=== PATIENT | female | born 1955 | race Caucasian/White ===

== ENCOUNTER 2021-12-10 22:24 | Inpatient (IN) | payer OTHER, BC ==
[~2021-12-10] VITALS: Ht 157.5 cm; Wt 69.5 kg
[2021-12-10 22:48] VITALS: BP_SYST 102
--- NOTE | 2021-12-10 22:55 | NUR ---
RECEIVED PT BIB BLS TRANSPORT C/O LOWER BACK PAIN RADIATES TO UPPER. PT DENIES TRAUMA, DENIES FALL. SHE STATED THAT SHE LEFT AMA ON REHAB WHERE SHE WAS EARLIER. PER PT SHE WAS AT [facility] AND DID MRI ON HER. PMH:CHRONIC BACK PAIN PT AAOX4, NO SOB NOTED AND NAD.
--- NOTE | 2021-12-11 01:10 | NUR ---
Patient to ER bed 03 to gown for evaluation. Side rails up.
--- NOTE | 2021-12-11 02:42 | NUR ---
Dr. Sorensen at bedside with patient for evaluation.
[2021-12-11] MEDS ORDERED: traMADol HCL HCL 50 MG TABLET (ULTRAM) PO ONE (03:30)
[2021-12-11 03:43] LABS: BASOPHILS # (AUTO) 0.1 K/uL (0.0-0.2); BASOPHILS % (AUTO) 0.6 % (0.0-2.0); EOSINOPHILS # (AUTO) 0.6 K/uL (0.0-0.4); EOSINOPHILS % (AUTO) 4.6 % (0.0-4.0); HEMATOCRIT 38.6 % (36-48); HEMOGLOBIN 13.3 g/dL (12.0-16.0); LYMPHOCYTES % (AUTO) 22.9 % (20.5-51.5); MEAN CORPUSCULAR HEMOGLOBIN 29 pg (27-31); MEAN CORPUSCULAR HGB CONC 35 % (32-36); MEAN CORPUSCULAR VOLUME 83 fL (79.0-98.0); MONOCYTES % (AUTO) 7.5 % (1.7-9.3); NEUTROPHILS # (AUTO) 8.5 K/uL (1.8-7.7); NEUTROPHILS % (AUTO) 64.4 % (40.0-70.0); PLATELET COUNT (AUTO) 300 K/uL (130-430); RED BLOOD CELL COUNT(AUTO) 4.64 MIL/uL (4.2-6.2); RED CELL DISTRIBUTION WIDTH 13.3 % (9.0-15.0); WHITE BLOOD COUNT (AUTO) 13.2 K/uL (4.8-10.8)
[2021-12-11 04:09] LABS: CALCIUM 8.8 mg/dL (8.4-11.0); CREATININE 1.13 mg/dL (0.55-1.30); POTASSIUM 3.9 mmol/L (3.5-5.1)
[2021-12-11 04:14] LABS: TOTAL BILIRUBIN 0.5 mg/dL (0.0-1.0)
[2021-12-11] MEDS ORDERED: CLON0.5T4 PO (04:19)
[2021-12-11] MEDS ORDERED: PRO10 PO (04:19)
--- NOTE | 2021-12-11 04:20 | NUR ---
MED REC COMPLETED. INFORMATION PROVIDED BY PT.
--- NOTE | 2021-12-11 04:42 | NUR ---
Pt unable to provide urine sample. MADE AWARE.
--- NOTE | 2021-12-11 04:43 | NUR ---
Admit bed requested Patient will be admitted to care of Dr. MCNEAL. Admitted to MED SURG unit. Diagnosis BACK PAIN Inpatient (Yes or No) YES Observation (Yes or No) NO Orientation concerns or request close to nursing station (Yes or No) NO Covid Status PENDING On vent or bipap NO Isolation requirements NO Needs a sitter NO From Home (Yes or if No enter name of facility) YES Requires Dialysis (Yes or No) NO Med Rec Completed (Yes of No) YES
[2021-12-11] MEDS ORDERED: MORPHINE 2 MG/ML INJ. SYRINGE IVP PRN ×2 (04:45→07:30)
--- NOTE | 2021-12-11 05:33 | NUR ---
Patient will be admitted to care of Dr. Murdock. Admitted to MED SURG unit. Will go to room 103B. Belongings list completed. Complete and up to date summary report printed. SBAR report given to Melyssa JON at bedside with opportunity for questions.
--- NOTE | 2021-12-11 05:33 | NUR ---
Received report from DANAY Medina and assumed patient care. Will wait for patient to arrive on unit in room 103B.
--- NOTE | 2021-12-11 06:10 | NUR ---
Patient arrived on the unit, educated the patient about the use of call light, and the unit policies. Patient understood all the education, no additional questions noted at the moment. Will reinforce if needed throughout the shift.
[2021-12-11 06:15] VITALS: BP_SYST 128
[2021-12-11 07:03] VITALS: BP_SYST 137
[2021-12-11] MEDS ORDERED: DOCUSATE SODIUM 100 MG CAPSULE PO PRN (07:30)
[2021-12-11] MEDS ORDERED: ACETAMINOPHEN 325 MG TABLET PO PRN (07:30)
[2021-12-11] MEDS ORDERED: LORazepam 2 MG/ML VIAL IVP PRN (07:30)
[2021-12-11] MEDS ORDERED: MAGNESIUM SULFATE 50 ML IV PRN (07:30)
[2021-12-11] MEDS ORDERED: POTASSIUM CHLORIDE 20 MEQ TAB.PRT.SR PO PRN (07:30)
[2021-12-11] MEDS ORDERED: NALOXONE HCL 0.4 MG/ML AMP (NARCAN) IVP PRN ×2 (07:30)
[2021-12-11] MEDS ORDERED: MUPIROCIN 2% TOPICAL OINTMENT 22 GM NS PRN (07:30)
[2021-12-11] MEDS ORDERED: PRO20 PO (07:33)
[2021-12-11 07:49] LABS: BILIRUBIN,URINE NEGATIVE (NEGATIVE); BLOOD, URINE 3+ (NEGATIVE); CLARITY/URINE CLEAR (CLEAR); COLOR,URINE YELLOW (YELLOW); GLUCOSE,URINE NEGATIVE (NEGATIVE); KETONES,URINE NEGATIVE (NEGATIVE); LEUKOCYTE ESTERASE ,URINE 3+ (NEGATIVE); NITRITE, URINE NEGATIVE (NEGATIVE); PROTEIN URINE NEGATIVE (NEGATIVE); UROBILINOGEN,URINE 0.2 (0.2-1.0)
[2021-12-11 08:28] LABS: BACTERIA,URINE FEW /HPF (None Seen)
[2021-12-11 08:29] LABS: MUCUS,URINE 1+ /LPF (None Seen)
[2021-12-11] MEDS: MORPHINE 2 MG/ML INJ. SYRINGE IVP PRN ×2 (10:27→21:21)
[2021-12-11] MEDS: ONDANSETRON HCL 4 MG/2 ML VIAL IVP PRN (10:27)
[2021-12-11] MEDS: FLUoxetine HCL 20 MG CAPSULE (PROzac) PO SCH (10:27)
[2021-12-11 11:34] VITALS: BP_SYST 141
[2021-12-11] MEDS: cefTRIAXone 1 GM in D5W 50 ML IV SCH (13:00)
[2021-12-11 16:42] VITALS: BP_SYST 132
--- NOTE | 2021-12-11 19:15 | NUR ---
Received report from AM shift RN, and assumed patient care.
[2021-12-11 20:00] VITALS: BP_SYST 133
[2021-12-11 21:00] VITALS: BP_SYST 130
--- NOTE | 2021-12-11 23:45 | NUR ---
Patient is seen in bed with the call light within reach, bed in lowest position. No complications noted at the moment, will reinforce if needed throughout the shift.
[2021-12-12] VITALS: BP_SYST 144
[2021-12-12 02:51] VITALS: BP_SYST 141
[2021-12-12] MEDS: MORPHINE 2 MG/ML INJ. SYRINGE IVP PRN (02:51)
--- NOTE | 2021-12-12 02:51 | NUR ---
Patient complained of pain, pain medication given (please see emar for further details). No additional complications noted at the moment. Will reinforce if needed throughout the shift.
--- NOTE | 2021-12-12 04:44 | NUR ---
Patient attempted to use the bedside commode, unsuccessful to perform due to pain. Patient OK to wait again and retry with bedpan.
--- NOTE | 2021-12-12 05:00 | NUR ---
Attempted to call Dr. Murdock for patient's complaint of not being able to urinate due to pain, no answer, and left a voicemail. Will retry again, no additional orders noted at the moment.
[2021-12-12 06:01] LABS: BASOPHILS # (AUTO) 0.1 K/uL (0.0-0.2); BASOPHILS % (AUTO) 0.7 % (0.0-2.0); EOSINOPHILS # (AUTO) 0.5 K/uL (0.0-0.4); EOSINOPHILS % (AUTO) 5.5 % (0.0-4.0); HEMATOCRIT 37.8 % (36-48); HEMOGLOBIN 13.1 g/dL (12.0-16.0); LYMPHOCYTES # (AUTO) 2.2 K/uL (1.0-5.5); LYMPHOCYTES % (AUTO) 21.8 % (20.5-51.5); MEAN CORPUSCULAR HEMOGLOBIN 29 pg (27-31); MEAN CORPUSCULAR HGB CONC 35 % (32-36); MEAN CORPUSCULAR VOLUME 84 fL (79.0-98.0); MONOCYTES # (AUTO) 0.8 K/uL (0.0-1.0); MONOCYTES % (AUTO) 7.5 % (1.7-9.3); NEUTROPHILS # (AUTO) 6.5 K/uL (1.8-7.7); NEUTROPHILS % (AUTO) 64.5 % (40.0-70.0); PLATELET COUNT (AUTO) 313 K/uL (130-430); RED BLOOD CELL COUNT(AUTO) 4.53 MIL/uL (4.2-6.2); RED CELL DISTRIBUTION WIDTH 13.2 % (9.0-15.0); WHITE BLOOD COUNT (AUTO) 10.1 K/uL (4.8-10.8)
[2021-12-12 06:12] LABS: CREATININE 1.03 mg/dL (0.55-1.30); POTASSIUM 3.7 mmol/L (3.5-5.1)
[2021-12-12] MEDS: FLUoxetine HCL 20 MG CAPSULE (PROzac) PO SCH (08:30)
[2021-12-12] MEDS: ONDANSETRON HCL 4 MG/2 ML VIAL IVP PRN (08:31)
[2021-12-12 11:25] VITALS: BP_SYST 137
[2021-12-12] MEDS: cefTRIAXone 1 GM in D5W 50 ML IV SCH (14:29)
[2021-12-12 15:26] VITALS: BP_SYST 155
[2021-12-12] MEDS: CYCLOBENZAPRINE HCL 10 MG TABLET (FLEXERIL) PO SCH ×2 (16:04→20:17)
[2021-12-12] MEDS: GABAPENTIN 300 MG CAPSULE PO SCH ×2 (16:05→20:17)
--- NOTE | 2021-12-12 16:25 | NUR ---
CHIANG CATHETER INSERTED SUCCESSFULLY. DRAINING AND HANGING FREELY. PT DENIES PAIN AT THIS TIME. WILL CONTINUE TO MONITOR. STABLE AT THIS TIME.
--- NOTE | 2021-12-12 19:05 | NUR ---
Received report from AM shift RN, and assumed patient care.
[2021-12-12 20:00] VITALS: BP_SYST 138
--- NOTE | 2021-12-12 21:00 | NUR ---
Educated the patient about the plan of care, and the use of call light. Patient understood the teaching and will reinforce education if needed throughout the shift.
--- NOTE | 2021-12-13 | NUR ---
Patient is found in bed, asleep. No complications noted at the moment, call light is within reach, and bed is in lowest position. Will reinforce if needed throughout the shift.
[2021-12-13 00:43] VITALS: BP_SYST 158
--- NOTE | 2021-12-13 04:00 | NUR ---
Patient was found in bed asleep, no complications noted at the moment. Call light is within reach, bed is in lowest position. Will reinforce if needed throughout the shift.
[2021-12-13 05:13] VITALS: BP_SYST 142
[2021-12-13] MEDS: MORPHINE 2 MG/ML INJ. SYRINGE IVP PRN ×3 (05:13→20:06)
--- NOTE | 2021-12-13 05:13 | NUR ---
Patient complained of pain, provided non-pharmacological interventions however it was not successful. Patient continued to request for pain medication, please see emar for further details.
[2021-12-13 07:38] LABS: CALCIUM 8.5 mg/dL (8.4-11.0); CREATININE 0.87 mg/dL (0.55-1.30)
[2021-12-13 08:00] VITALS: BP_SYST 152
--- NOTE | 2021-12-13 08:00 | NUR ---
Miss Lira has been assessed as indicated. She is being treated for chronic back pain with PRN IV meds. as well as PO scheduled meds. She is resting quietly at this time. She states that she was in a rehab facility in [place] until 12/10/21. She states that she left AMA and went home with the help of a neighbor. She came to [place] on night. She states that she cannot walk. according to her, she was informed that the results of recent testing show that she cannot be rehabbed but needs to have sugary by a "good" neuro-surgeon. She states that she has an office appointment with one on 12/28/21. She anticipates that she will be DC back to a rehab facility until she can get to that appointment. She states that she can no longer care for herself at home. She states that she cannot walk at all. Along with this back pain she is having Dysuria and has a Musa in place a this time. A plan of care will be developed by case management and admitting physicians
[2021-12-13 08:23] LABS: BASOPHILS # (AUTO) 0.1 K/uL (0.0-0.2); BASOPHILS % (AUTO) 0.7 % (0.0-2.0); EOSINOPHILS # (AUTO) 0.5 K/uL (0.0-0.4); EOSINOPHILS % (AUTO) 6.4 % (0.0-4.0); HEMATOCRIT 39.9 % (36-48); HEMOGLOBIN 13.6 g/dL (12.0-16.0); LYMPHOCYTES # (AUTO) 2.9 K/uL (1.0-5.5); LYMPHOCYTES % (AUTO) 34.7 % (20.5-51.5); MEAN CORPUSCULAR HEMOGLOBIN 29 pg (27-31); MEAN CORPUSCULAR HGB CONC 34 % (32-36); MEAN CORPUSCULAR VOLUME 84 fL (79.0-98.0); MONOCYTES # (AUTO) 0.8 K/uL (0.0-1.0); MONOCYTES % (AUTO) 9.7 % (1.7-9.3); NEUTROPHILS # (AUTO) 4.1 K/uL (1.8-7.7); NEUTROPHILS % (AUTO) 48.5 % (40.0-70.0); PLATELET COUNT (AUTO) 317 K/uL (130-430); RED BLOOD CELL COUNT(AUTO) 4.74 MIL/uL (4.2-6.2); RED CELL DISTRIBUTION WIDTH 13.1 % (9.0-15.0); WHITE BLOOD COUNT (AUTO) 8.4 K/uL (4.8-10.8)
[2021-12-13] MEDS: FLUoxetine HCL 20 MG CAPSULE (PROzac) PO SCH (10:19)
[2021-12-13] MEDS: GABAPENTIN 300 MG CAPSULE PO SCH ×3 (10:19→20:20)
[2021-12-13] MEDS: CYCLOBENZAPRINE HCL 10 MG TABLET (FLEXERIL) PO SCH ×3 (10:20→20:20)
[2021-12-13 11:26] VITALS: BP_SYST 117
[2021-12-13] MEDS: cefTRIAXone 1 GM in D5W 50 ML IV SCH (14:44)
--- NOTE | 2021-12-13 14:50 | NUR ---
MORPHJINE IV 2MG GIVEN. RFA22 FOR BACK PAIN. 10/31
--- NOTE | 2021-12-13 15:20 | NUR ---
PAIN REASSESSMENT 2/10 RESTING QUIETLY
[2021-12-13 15:34] VITALS: BP_SYST 134
--- NOTE | 2021-12-13 19:15 | NUR ---
Received report from AM shift RN, and assumed patient care.
--- NOTE | 2021-12-13 19:15 | NUR ---
Handoff has been given to Gifty
[2021-12-13 20:00] VITALS: BP_SYST 140
--- NOTE | 2021-12-13 20:03 | NUR ---
Educated the patient about the plan of care, patient had no further questions noted at the moment and will reinforce education if needed throughout the shift.
[2021-12-14 00:06] VITALS: BP_SYST 133
--- NOTE | 2021-12-14 00:14 | NUR ---
Patient is in bed, asleep. No questions or complications noted at the moment, and will reinforce if needed throughout the shift. Call light within reach, and bed is in lowest position. Will reinforce if needed throughout the shift.
[2021-12-14 06:40] VITALS: BP_SYST 146
[2021-12-14] MEDS: MORPHINE 2 MG/ML INJ. SYRINGE IVP PRN ×2 (06:41→13:14)
[2021-12-14 07:13] LABS: BASOPHILS # (AUTO) 0.1 K/uL (0.0-0.2); BASOPHILS % (AUTO) 1.1 % (0.0-2.0); EOSINOPHILS # (AUTO) 0.5 K/uL (0.0-0.4); HEMATOCRIT 38.7 % (36-48); HEMOGLOBIN 13.3 g/dL (12.0-16.0); LYMPHOCYTES % (AUTO) 35.2 % (20.5-51.5); MEAN CORPUSCULAR HEMOGLOBIN 29 pg (27-31); MEAN CORPUSCULAR HGB CONC 35 % (32-36); MEAN CORPUSCULAR VOLUME 84 fL (79.0-98.0); MONOCYTES # (AUTO) 0.6 K/uL (0.0-1.0); MONOCYTES % (AUTO) 6.9 % (1.7-9.3); NEUTROPHILS # (AUTO) 4.3 K/uL (1.8-7.7); NEUTROPHILS % (AUTO) 50.8 % (40.0-70.0); PLATELET COUNT (AUTO) 308 K/uL (130-430); RED BLOOD CELL COUNT(AUTO) 4.61 MIL/uL (4.2-6.2); RED CELL DISTRIBUTION WIDTH 13.1 % (9.0-15.0); WHITE BLOOD COUNT (AUTO) 8.5 K/uL (4.8-10.8)
[2021-12-14 07:30] LABS: CALCIUM 8.6 mg/dL (8.4-11.0); CREATININE 0.79 mg/dL (0.55-1.30); POTASSIUM 4.3 mmol/L (3.5-5.1)
--- NOTE | 2021-12-14 08:00 | NUR ---
Miss Liar has been assessed as indicted. She has been treated for pain by previous shift and is resting quietly at this time. She anticipates being DC to a SNF soon and she is compliant with this plan. The Musa remains in place with good urine output.
[2021-12-14] MEDS ORDERED: traMADol HCL HCL 50 MG TABLET (ULTRAM) PO SCH (09:00)
[2021-12-14] MEDS: FLUoxetine HCL 20 MG CAPSULE (PROzac) PO SCH (09:12)
[2021-12-14] MEDS: GABAPENTIN 300 MG CAPSULE PO SCH (09:12)
[2021-12-14] MEDS: CYCLOBENZAPRINE HCL 10 MG TABLET (FLEXERIL) PO SCH (09:12)
[2021-12-14 11:23] VITALS: BP_SYST 141
[2021-12-14 12:07] VITALS: BP_SYST 138
[2021-12-14] MEDS: cefTRIAXone 1 GM in D5W 50 ML IV SCH (13:15)
--- NOTE | 2021-12-14 15:05 | NUR ---
Miss Lira is being DC to [facility]. Report has been called to Anne. [facility]. She will be going to bed 8a. IV access remains in place. Musa is to remain in place. She is being transported by [facility] unit #[id number] with Wyatt in charge. At the time of DC Miss Lira was resting quietly with no s/s of distress or discomfort and was compliant with the plan to DC. She stated that her daughter was aware of her transfer as well as the location. She took all her belongings with her. She had some shorts and a t-shirt from home that she had worn to the hospital. She stated that they were soiled and instructed this grant writer to dispose of the items.
== END 2021-12-14 15:05 | DRG 552 ==
LOC: SED 22:24 → SMU 12-11 04:32
PROVIDERS: ADMIT Family Medicine; ATTEND Family Medicine
DX: M54.30 Sciatica, unspecified side (principal); N39.0 Urinary tract infection, site not specified; E44.0 Moderate protein-calorie malnutrition; M51.36 Other intervertebral disc degeneration, lumbar region; Z20.822 Contact with and (suspected) exposure to COVID-19; R53.81 Other malaise; G62.9 Polyneuropathy, unspecified; Z88.8 Allergy status to other drugs, medicaments and biological substances; Z79.899 Other long term (current) drug therapy; Z68.28 Body mass index [BMI] 28.0-28.9, adult
CPT/HCPCS: 36415; 72100-TC; 80048; 80053; 81000; 83735; 85025; 87081; 87086; 97110-GP; 97116-GP; 97530-GP; 99285; J0696; J2060; J2270; J2405; J7040; J7060

== ENCOUNTER 2022-02-23 10:20 | Inpatient (IN) | payer OTHER, BC ==
[~2022-02-23] VITALS: Ht 157.5 cm; Wt 60.8 kg
[~2022-02-23 10:20] MED LIST: CLON0.5T4 PO; PRO20 PO
[2022-02-23] MEDS ORDERED: fentaNYL CITRATE/PF 100 MCG/2 ML AMP ONE (11:04)
[2022-02-23] MEDS ORDERED: BACITRACIN 1 GM OINT TP ONE (11:14)
[2022-02-23 14:50] LABS: BASOPHILS # (AUTO) 0.1 K/uL (0.0-0.2); BASOPHILS % (AUTO) 0.8 % (0.0-2.0); EOSINOPHILS # (AUTO) 0.1 K/uL (0.0-0.4); EOSINOPHILS % (AUTO) 1.5 % (0.0-4.0); HEMATOCRIT 42.1 % (36-48); HEMOGLOBIN 13.7 g/dL (12.0-16.0); LYMPHOCYTES # (AUTO) 2.6 K/uL (1.0-5.5); LYMPHOCYTES % (AUTO) 29.9 % (20.5-51.5); MEAN CORPUSCULAR HEMOGLOBIN 27 pg (27-31); MEAN CORPUSCULAR HGB CONC 33 % (32-36); MEAN CORPUSCULAR VOLUME 83 fL (79.0-98.0); MONOCYTES # (AUTO) 0.6 K/uL (0.0-1.0); MONOCYTES % (AUTO) 7.3 % (1.7-9.3); NEUTROPHILS # (AUTO) 5.2 K/uL (1.8-7.7); NEUTROPHILS % (AUTO) 60.5 % (40.0-70.0); PLATELET COUNT (AUTO) 403 K/uL (130-430); RED BLOOD CELL COUNT(AUTO) 5.05 MIL/uL (4.2-6.2); RED CELL DISTRIBUTION WIDTH 15.1 % (9.0-15.0); WHITE BLOOD COUNT (AUTO) 8.6 K/uL (4.8-10.8)
[2022-02-23 14:56] LABS: CALCIUM 9.7 mg/dL (8.4-11.0)
[2022-02-23 14:57] LABS: CREATININE 0.65 mg/dL (0.55-1.30)
[2022-02-23 14:58] LABS: ALBUMIN 3.3 g/dL (3.4-4.8); TOTAL BILIRUBIN 0.6 mg/dL (0.0-1.0)
[2022-02-23] MEDS ORDERED: HYDROmorphone 2 MG/ML VIAL IVP PRN (15:00)
[2022-02-23] MEDS ORDERED: HYDROmorphone 1 MG/ML INJ. CARTRIDGE IVP PRN ×2 (15:12→17:00)
[2022-02-23 15:36] LABS: BILIRUBIN,URINE NEGATIVE (NEGATIVE); BLOOD, URINE 1+ (NEGATIVE); CLARITY/URINE CLEAR (CLEAR); COLOR,URINE YELLOW (YELLOW); GLUCOSE,URINE NEGATIVE (NEGATIVE); KETONES,URINE NEGATIVE (NEGATIVE); LEUKOCYTE ESTERASE ,URINE 1+ (NEGATIVE); NITRITE, URINE NEGATIVE (NEGATIVE); PROTEIN URINE TRACE (NEGATIVE); UROBILINOGEN,URINE 0.2 (0.2-1.0)
[2022-02-23 15:52] LABS: BACTERIA,URINE FEW /HPF (None Seen); MUCUS,URINE None Seen /LPF (None Seen); RBC,URINE 0-3 /HPF (0-3)
[2022-02-23] MEDS ORDERED: ACETAMINOPHEN 325 MG TABLET PO PRN (17:00)
[2022-02-23] MEDS ORDERED: NALOXONE HCL 0.4 MG/ML AMP (NARCAN) IVP PRN ×2 (17:00)
[2022-02-23] MEDS ORDERED: DIPHENHYDRAMINE INJ 50 MG/ML VIAL IVP PRN (17:00)
[2022-02-23] MEDS ORDERED: ONDANSETRON HCL 4 MG/2 ML VIAL IVP PRN (17:00)
[2022-02-23] MEDS ORDERED: LR 500 ML IV ONE (17:45)
[2022-02-23] MEDS: cefTRIAXone 1 GM IVPB PREMIX 50 ML IV SCH (19:02)
[2022-02-23] MEDS: HYDROmorphone 2 MG TAB PO PRN (19:03)
[2022-02-23] MEDS: HYDROmorphone 1 MG/ML INJ. CARTRIDGE IVP PRN (23:40)
[2022-02-24 00:12] VITALS: BP_SYST 148
[2022-02-24 04:04] VITALS: BP_SYST 138
[2022-02-24] MEDS: HYDROmorphone 2 MG TAB PO PRN ×3 (06:52→18:34)
[2022-02-24 07:18] LABS: BASOPHILS % (AUTO) 0.6 % (0.0-2.0); EOSINOPHILS # (AUTO) 0.4 K/uL (0.0-0.4); EOSINOPHILS % (AUTO) 4.6 % (0.0-4.0); HEMOGLOBIN 12.4 g/dL (12.0-16.0); LYMPHOCYTES # (AUTO) 2.6 K/uL (1.0-5.5); LYMPHOCYTES % (AUTO) 34.1 % (20.5-51.5); MEAN CORPUSCULAR HEMOGLOBIN 28 pg (27-31); MEAN CORPUSCULAR HGB CONC 34 % (32-36); MEAN CORPUSCULAR VOLUME 83 fL (79.0-98.0); MONOCYTES # (AUTO) 0.7 K/uL (0.0-1.0); MONOCYTES % (AUTO) 9.5 % (1.7-9.3); NEUTROPHILS # (AUTO) 3.9 K/uL (1.8-7.7); NEUTROPHILS % (AUTO) 51.2 % (40.0-70.0); PLATELET COUNT (AUTO) 356 K/uL (130-430); RED BLOOD CELL COUNT(AUTO) 4.48 MIL/uL (4.2-6.2); RED CELL DISTRIBUTION WIDTH 15.2 % (9.0-15.0); WHITE BLOOD COUNT (AUTO) 7.7 K/uL (4.8-10.8)
[2022-02-24 07:19] LABS: CALCIUM 8.8 mg/dL (8.4-11.0); CREATININE 0.6 mg/dL (0.55-1.30)
[2022-02-24 08:00] VITALS: BP_SYST 141
[2022-02-24] MEDS: clonazePAM 0.5 MG TABLET PO PRN ×2 (08:37→20:43)
[2022-02-24] MEDS: FLUoxetine HCL 20 MG CAPSULE (PROzac) PO SCH (08:37)
[2022-02-24 11:30] VITALS: BP_SYST 135
[2022-02-24 15:21] VITALS: BP_SYST 133
[2022-02-24] MEDS: cefTRIAXone 1 GM IVPB PREMIX 50 ML IV SCH (17:54)
[2022-02-24 20:00] VITALS: BP_SYST 141
[2022-02-25 00:23] VITALS: BP_SYST 127
[2022-02-25] MEDS: HYDROmorphone 2 MG TAB PO PRN ×3 (00:31→15:54)
[2022-02-25 08:00] VITALS: BP_SYST 130
[2022-02-25] MEDS: FLUoxetine HCL 20 MG CAPSULE (PROzac) PO SCH (08:14)
[2022-02-25] MEDS: clonazePAM 0.5 MG TABLET PO PRN (09:34)
[2022-02-25] MEDS: HYDROmorphone 1 MG/ML INJ. CARTRIDGE IVP PRN ×2 (09:34→13:56)
[2022-02-25 11:24] VITALS: BP_SYST 134
[2022-02-25 15:20] VITALS: BP_SYST 160
[2022-02-25 16:55] VITALS: BP_SYST 147
== END 2022-02-25 17:25 | disposition home or self-care (01) | DRG 552 ==
LOC: SED 10:20 → SMU 13:52
PROVIDERS: ADMIT Internal Medicine; ATTEND Internal Medicine
DX: M54.59 Other low back pain (principal); N30.00 Acute cystitis without hematuria; E44.1 Mild protein-calorie malnutrition; E86.0 Dehydration; K21.9 Gastro-esophageal reflux disease without esophagitis; F32.A Depression, unspecified; F41.9 Anxiety disorder, unspecified; Z20.822 Contact with and (suspected) exposure to COVID-19; Z88.8 Allergy status to other drugs, medicaments and biological substances; Z79.899 Other long term (current) drug therapy; Z68.24 Body mass index [BMI] 24.0-24.9, adult
CPT/HCPCS: 36415; 72131; 76376; 80048; 80053; 81000; 85025; 87081; 87086; 99285; J0696; J1170; J3010; J7040

== ENCOUNTER 2023-03-10 08:45 | Emergency (ER) | payer BC, OTHER ==
[~2023-03-10] VITALS: Ht 157.5 cm; Wt 68.0 kg
[2023-03-10 08:47] VITALS: BP_SYST 187; PULSE 119; RESP 17; TEMP 98.8; O2SAT 98
[2023-03-10 09:15] LABS: BASOPHILS # (AUTO) 0.1 K/uL (0.0-0.2); EOSINOPHILS # (AUTO) 0.2 K/uL (0.0-0.4); EOSINOPHILS % (AUTO) 1.8 % (0.0-4.0); HEMATOCRIT 42.2 % (36-48); HEMOGLOBIN 14.1 g/dL (12.0-16.0); LYMPHOCYTES # (AUTO) 1.9 K/uL (1.0-5.5); LYMPHOCYTES % (AUTO) 16.8 % (20.5-51.5); MEAN CORPUSCULAR HEMOGLOBIN 28 pg (27-31); MEAN CORPUSCULAR HGB CONC 33 % (32-36); MEAN CORPUSCULAR VOLUME 83 fL (79.0-98.0); MONOCYTES % (AUTO) 8.8 % (1.7-9.3); NEUTROPHILS % (AUTO) 71.6 % (40.0-70.0); PLATELET COUNT (AUTO) 362 K/uL (130-430); RED BLOOD CELL COUNT(AUTO) 5.12 MIL/uL (4.2-6.2); RED CELL DISTRIBUTION WIDTH 13.4 % (9.0-15.0); WHITE BLOOD COUNT (AUTO) 11.2 K/uL (4.8-10.8)
[2023-03-10 09:23] LABS: ANION GAP 10 (5-15); CALCIUM 9.6 mg/dL (8.4-11.0); CARBON DIOXIDE 28 mmol/L (23-29); CHLORIDE 104 mmol/L (98-107); CREATININE 0.78 mg/dL (0.55-1.30); GFR AFRICAN AMERICAN 95 mL/min (>90); GLUCOSE 138 mg/dL (74-106); POTASSIUM 4.5 mmol/L (3.5-5.1); SODIUM SERUM 142 mmol/L (136-145); UREA NITROGEN, BLOOD 24 mg/dL (8-21)
[2023-03-10 09:24] LABS: GFR NON AFRICAN-AMERICAN 78 mL/min (>90)
[2023-03-10 09:25] LABS: INR 0.9 (0.8-1.2); PROTHROMBIN TIME 9.6 SECS (9.5-12.5)
[2023-03-10 09:37] LABS: ALANINE AMINOTRANSFERASE 35 U/L (12-78); ALBUMIN 3.3 g/dL (3.4-4.8); ASPARTATE AMINOTRANSFERASE 18 U/L (10-37); BILIRUBIN,DIRECT 0.2 mg/dL (0.0-0.3); FREE T4 (FREE THYROXINE) 2.4 ng/dL (0.6-1.6); THYROID STIMULATING HORMONE < 0.01 uIu/mL (0.34-4.82); TOTAL BILIRUBIN 0.9 mg/dL (0.0-1.0); TOTAL PROTEIN, SERUM 7.7 g/dL (6.4-8.3)
[2023-03-10] MEDS ORDERED: ATEN-166 PO (10:08)
[2023-03-10] MEDS ORDERED: ATENOLOL 50 MG TABLET (TENORMIN) PO ONE (10:15)
[2023-03-10] MEDS ORDERED: ALPR0.5T PO (10:31)
[2023-03-10 11:11] VITALS: BP_SYST 138; PULSE 99; RESP 17; TEMP 98.8; O2SAT 98
== END 2023-03-10 11:12 | disposition home or self-care (01) ==
LOC: SED 08:45
DX: R00.2 Palpitations (principal); E03.9 Hypothyroidism, unspecified; Z88.6 Allergy status to analgesic agent; Z79.899 Other long term (current) drug therapy
CPT/HCPCS: 36415; 71045; 80048; 80076; 82550; 83880; 84439; 84443; 84484; 85025; 85610-TC; 85730-TC; 99285